=== PATIENT | female | born 2000 ===

== ENCOUNTER 2019-11-21 11:00 | Outpatient (CLI) | payer OTHER ==
[2019-11-21 18:12] LABS: HGB - HEMOGLOBIN 8.9 g/dL (12.0-16.0); MEAN CORPUSCULAR HEMOGLOBIN 25.2 pg (27.0-31.0); MEAN CORPUSCULAR HGB CONC 29.9 g/dL (32.0-36.0); MEAN CORPUSCULAR VOLUME 84.4 fL (81.0-99.0); MEAN PLATELET VOLUME 11.4 fL (7.9-10.8); RED BLOOD COUNT 3.53 10^6/uL (4.20-5.40); RED CELL DISTRIBUTION WIDTH 15.3 % (12.0-15.0); WHITE BLOOD COUNT 8.4 x10^3/uL (4.8-10.8)
== END 2019-11-21 23:59 | disposition home or self-care (01) ==
LOC: LAB.WCP 11:00
PROVIDERS: ATTEND Advanced Practice Midwife
DX: O99.019 Anemia complicating pregnancy, unspecified trimester (principal); Z3A.00 Weeks of gestation of pregnancy not specified; D64.9 Anemia, unspecified
CPT/HCPCS: 36415; 85027

== ENCOUNTER 2019-12-05 07:00 | Outpatient (CLI) | payer OTHER ==
[2019-12-05 21:40] LABS: TRICHOMONAS VAGINALIS DNA NEGATIVE (NEGATIVE)
== END 2019-12-05 23:59 | disposition home or self-care (01) ==
LOC: LAB.R 07:00
PROVIDERS: ATTEND Advanced Practice Midwife
DX: Z34.00 Encounter for supervision of normal first pregnancy, unspecified trimester (principal); Z36.85 Encounter for antenatal screening for Streptococcus B
CPT/HCPCS: 87491; 87591; 87661; 87797

== ENCOUNTER 2019-12-06 09:38 | Outpatient (CLI) | payer OTHER ==
[2019-12-06] MEDS ORDERED: ONDANSETRON 4 MG/2 ML VIAL IVP PRN (09:55)
[2019-12-06 10:03] VITALS: BP 109/54
[2019-12-06] MEDS ORDERED: IRON DEXTRAN 1,000 MG in SODIUM CHLORIDE 0.9% 250 ML IV ONE (10:30)
--- NOTE | 2019-12-18 17:51 | PROVIDER PROGRESS NOTE ---
- HPI Chief Complaint: Other (Outpatient Infusion Therapy- Iron) Current : Vital Signs Temperature 36.9 C 12/06/19 09:58 Heart Rate 82 12/06/19 09:58 Respiratory Rate 16 12/06/19 09:58 Blood Pressure 109/54 L 12/06/19 09:58 Temperature 36.9 C 12/06/19 09:58 Heart Rate 82 12/06/19 09:58 Respiratory Rate 16 12/06/19 09:58 Blood Pressure 109/54 L 12/06/19 09:58 O2 Saturation - Procedures OB Procedure Performed: Other (Iron Infusion) - Plan Plan: Outpatient Iron Infusion 19yo at 36.3wks gestation by 9.4wk US, presents today for outpatient Iron infusion for Anemia As evidenced by H/H on 11/21/2019 29.8%/8.9g/dL Impression: Patient tolerated infusion well Final Diagnosis: Stable Will follow up per protocol with visits
== END 2019-12-06 11:50 | disposition home or self-care (01) ==
LOC: WFO 09:38 → FBP 09:46 → WFO 11:50
PROVIDERS: ATTEND Obstetrics & Gynecology
DX: O99.013 Anemia complicating pregnancy, third trimester (principal); Z3A.36 36 weeks gestation of pregnancy
CPT/HCPCS: 96374; 96375; J1750; 96367

== ENCOUNTER 2020-01-07 06:08 | Inpatient (IN) | payer OTHER ==
[2020-01-07] MEDS ORDERED: miSOPROStoL 200 MCG TABLET PR PRN (07:33)
[2020-01-07] MEDS ORDERED: LIDOCAINE-MPF 1% 30 ML VIAL ID PRN ×2 (07:33)
[2020-01-07] MEDS ORDERED: fentaNYL 100 MCG/2 ML VIAL IVP PRN (07:33)
[2020-01-07] MEDS ORDERED: SODIUM CHLORIDE FLUSH 0.9% 10 ML SYRINGE IVP PRN (07:33)
[2020-01-07] MEDS ORDERED: ONDANSETRON ODT 4 MG TABLET TL PRN (07:33)
[2020-01-07] MEDS ORDERED: OXYTOCIN 10 UNIT/ML VIAL IM PRN (07:33)
[2020-01-07] MEDS ORDERED: ONDANSETRON 4 MG/2 ML VIAL IVP PRN (07:33)
[2020-01-07] MEDS ORDERED: METHYLERGONOVINE 0.2 MG/ML VIAL IM PRN ×2 (07:33)
[2020-01-07] MEDS ORDERED: miSOPROStoL 200 MCG TABLET BC PRN (07:33)
[2020-01-07] MEDS ORDERED: CARBOPROST TROMETHAMINE 250 MCG/ML AMP IM PRN ×2 (07:33)
[2020-01-07] MEDS ORDERED: TERBUTALINE 1 MG/ML VIAL SUBQ PRN (07:33)
[2020-01-07] MEDS ORDERED: MINERAL OIL LIGHT 10 ML MC ONE (07:33)
[2020-01-07] MEDS ORDERED: miSOPROStoL 200 MCG TABLET PR ONE (07:33)
[2020-01-07] MEDS ORDERED: TRANEXAMIC ACID 1,000 MG in SODIUM CHLORIDE 0.9% 100ML 100 ML IV PRN ×4 (07:33)
[2020-01-07] MEDS ORDERED: OXYTOCIN/SODIUM CHLORIDE 500 ML IV PRN ×2 (07:33)
[2020-01-07] MEDS: miSOPROStoL 100 MCG TABLET BC SCH ×2 (08:04→11:55)
[2020-01-07 08:11] LABS: BASOPHILS % (AUTO) 0.2 %; EOSINOPHILS # (AUTO) 0.1 10^3/uL (0.0-0.7); EOSINOPHILS % (AUTO) 0.8 %; HGB - HEMOGLOBIN 11.8 g/dL (12.0-16.0); LYMPHOCYTES # (AUTO) 0.9 10^3/uL (1.5-3.5); LYMPHOCYTES % (AUTO) 13.8 %; MEAN CORPUSCULAR HEMOGLOBIN 27.9 pg (27.0-31.0); MEAN CORPUSCULAR HGB CONC 31.9 g/dL (32.0-36.0); MEAN CORPUSCULAR VOLUME 87.5 fL (81.0-99.0); MEAN PLATELET VOLUME 11.5 fL (7.9-10.8); MONOCYTES # (AUTO) 0.5 10^3/uL (0.0-1.0); MONOCYTES % (AUTO) 8.3 %; NEUTROPHILS # (AUTO) 4.9 10^3/uL (1.5-6.6); NEUTROPHILS % (AUTO) 76.3 %; PLT - PLATELET COUNT 152 10^3/uL (130-450); RED BLOOD COUNT 4.23 10^6/uL (4.20-5.40); WHITE BLOOD COUNT 6.4 x10^3/uL (4.8-10.8)
--- NOTE | 2020-01-07 08:42 | HISTORY & PHYSICAL EXAMINATION ---
Admit History - Visit Reason Visit Reason: Other (Pre induction cervical ripening for 41.0wk post dates gestation) - : 1 Parity: 0 Premature: 0 Ectopic: 0 : 0 Care: positive: [facility] Risk/History: positive: None Complications This : positive: None Smoking Status: Never smoker - Mother's Labs Mother's Blood Type: positive: O Mother's RH: positive: Positive GBS: positive: Group B Strep Positive Rubella Status: positive: Immune - Other Maternal History Other Maternal History: 19yo at 41.0wks gestation who presents for pre-induction cervical ripening for post dates Reports movement Denies Ctx/VB/LOF Care- with [facility] to 34.2 weeks then transferred to [facility] complications * GBS Positive IPAP indicated, no allergies * Anemia Iron infusion completed * Genetic Screening Positive Per [facility]: Elevated DST on quad (1 in 110) but normal Level II u/s with MFM. Pt declined NIPT. FAS wnl Dating Criteria * Initial U/S: 06/05/19 9.4wks c/w LMP for BAY of 12/31/2019 OB Hx * G1: current Medications * PNV * Iron 325mg daily * TUMS Allergies * NKA Medical History * Non contributory Surgical History * None Family History * Non contributory Social History * Non contributory Labs -O pos/Rubella immune -Gentic testing: Serum /2: Down Syndrome POSITIVE *Per [facility] paperwork "Elevated DSR on quad (1 in 110) but normal level II u/s with MFM. Pt declined NIPT. -FAS: 08/14/19 WNL 47% efw. posterior placenta. 3VC. JOVANNI wnl. -Glucola: 85 -28wk H/H 10.2/30.9 plt 216- anemia. CBC ordered 11/20 -CBC at 34.2wks (at transfer) 29.8/8.9. Fe infusion received 12/06/2019 -GBS - Positive IPAP -GC/CT - negative -HSV: denies self and partner Immunizations * TDAP 10/02/2019 SVE 2/70/-2/mid/soft Assessment * 19yo at 41.0wks gestation presents for cervical ripening and induction of labor * Augustine 7 -cervix unfavorable- ripening indicated Plan * Admit to OBS(until active labor, SROM, AROM, epidural, or pitocin) * Misoprostol 50mcg BC Q4h per protocol * Monitoring- Continuous * Comfort measures available- whirlpool tub, fentanyl, epidural * Diet/Activity- per pt preference * Anticipate Meds/Allgy - Allergies Allergies/Adverse Reactions: Allergies Allergy/AdvReac Type Severity Reaction Status Date / Time No Known Drug Allergies Allergy Verified 12/06/19 10:05 Review of Systems - Constitutional Constitutional: denies: Fatigue, Fever, Chills - Eyes Eyes: denies: Pain, Irritation, Vision loss - Ears, Nose & Throat Ears, Nose & Throat: denies: Hearing loss, Vertigo, Nasal pain, Nasal congestion, Postnasal drainage, Sore throat - Cardiovascular Cariovascular: denies: Irregular heart rate, Palpitations, Chest pain, Syncope - Respiratory Respiratory: denies: Cough, Wheezing - Gastrointestinal Gastrointestinal: denies: Abdominal pain, Constipation, Diarrhea, Nausea, Bile emesis - Genitourinary Genitourinary: denies: Frequency, Urgency, Hematuria - Integumentary Integumentary: denies: Rash, Pruritis, Lesions - Neurological Neurological: denies: General weakness, Focal weakness, Headache, Dizziness - Psychiatric Psychiatric: denies: Depression, Anxiety, Suicidal - All Other Systems All Other Systems: denies: Reviewed and negative Physical - Abdominal Exam Vital Signs: Temp Pulse Resp BP Pulse Ox 36.8 C 89 18 106/66 01/07/20 07:07 01/07/20 06:30 01/07/20 06:30 01/07/20 06:30 Contraction Frequency (min/apart): intermittent Contraction Intensity: positive: Mild Uterine Resting Tone: positive: Soft - Monitoring Heart Rate Baseline: 130 Strip Review: positive: Category I - Presentation Presentation: positive: Vertex (by BSUS) - Vaginal Exam Membranes: positive: Membranes intact Dilation (in cm): 2 Effacement (%): 70 Station: positive: -2 Cervical Position: positive: Midposition - Speculum Exam Speculum Exam Performed: positive: No Plan for Labor - Plan For Labor I expect patient to be DC'd or transferred within 96 hours.: Yes
[2020-01-07 08:43] LABS: PLATELET ESTIMATE, MANUAL NORMAL (130-450,000) (NORMAL); PLATELET MORPHOLOGY NORMAL APPEARANCE (NORMAL)
[2020-01-07] MEDS ORDERED: SODIUM CHLORIDE FLUSH 0.9% 10 ML SYRINGE IVP SCH (09:00)
[2020-01-07] MEDS: LACTATED RINGERS 1,000 ML IV SCH ×2 (14:45→16:08)
[2020-01-07] MEDS ORDERED: AMPICILLIN 2 GM in SODIUM CHLORIDE 0.9% MINIBAG 100 ML IV ONE (16:00)
[2020-01-07] MEDS ORDERED: HYDROCORTISONE 1% CREAM 28 GM TUBE PR PRN (18:52)
[2020-01-07] MEDS ORDERED: WITCH HAZEL/GLYCERIN 1 PAD TOP PRN (18:52)
--- NOTE | 2020-01-07 18:59 | DELIVERY NOTE ---
Delivery Note - Labor Labor: positive: Other (Induction of labor at 41.0wks with misoprostol) - Infant Delivery Method Delivery Method: positive: Spontaneous vaginal delivery - Cervical Ripening Method Cervical Ripening Method: positive: Misoprostil - Presentation Presentation: positive: Compound, NIDIA - right occiput anterior - Nuchal Cord Nuchal Cord: positive: Present (tight x1; sommersaulted) - Anesthetic Anesthetic: positive: Lidocaine - 1% plain - Amniotic Fluid Description Amniotic Fluid Description: positive: Clear - Laceration Laceration: positive: 1st degree, Labial (right) - Suture Suture Type: positive: Vicryl Suture Size: positive: 3-0 - Delivery Outcome Delivery Outcome: positive: Livebirth - Banquete : positive: Placed in direct skin contact with mother, Bulb syringe, Stimulated, Warmed, [place] used sex: positive: Male : 7 : 8 - Cord Cord: positive: 3 vessels - Placenta Placenta: positive: Intact, Spontaneous - Estimated Blood Loss Estimated Blood Loss (in cc): 300 - Post Delivery Events Post Delivery Events: positive: No post delivery events - Delivery Comments (Free Text/Narrative) Delivery Comments (Free Text/Narrative): Note: Labor: This 19 year old, , @41.0wks gestation by 9.4 week Ultrasound, confirmed by LMP, presented @ 0600 for pre-induction cervical ripening to induce labor for post dates gestation. Cervix was 2/70/-2 and vertex confirmed by BSUS. FHR pattern demonstrated 130 baseline in a Category I pattern. Misoprostol was administered x2 doses. Normal labor course. SROM occurred @ 1721 fluid was noted to be small in volume and clear. She progressed to c/c/+2 at 1729 with spontaneous pushing efforts. Baby began showing Cat II FHT, so position changes were used along with coached pushing efforts. : Normal of a male infant on 01/07/2020 @ 1754. Nuchal cord x1, tight, sommersaulted through. Compound presentation with right hand. The was placed on maternal abdomen, stimulated, dried and placed skin to skin. Apgars 7 at one minute and 8 at five minutes. The umbilical cord was allowed to stop pulsating at which time it was doubly clamped by CNM and cut by FOB. Pitocin administered via IV for hemostasis. Fundal massage and gentle cord traction applied for active third stage management. Cord blood was obtained. Placenta delivered spontaneously and intact at 1803. Three vessel cord. EBL 300mL. Fourth Stage: Uterine fundus firm and without excessive bleeding. The perineum, vagina, and cervix were inspected and found to be intact. First degree right labial tear was repaired in standard fashion under sterile conditions with lidocaine and a 3-0 vicryl.Vaginal examination following repair was done. Tissues well approximated. encouraged. Family bonding well. Both mother and baby are in stable condition.
[2020-01-07] MEDS ORDERED: AMPICILLIN 1 GM in SODIUM CHLORIDE 0.9% MINIBAG 100 ML IV SCH (20:00)
[2020-01-07] MEDS: IBUPROFEN 600 MG TABLET PO SCH (21:38)
[2020-01-07] MEDS: ACETAMINOPHEN 325 MG TABLET PO PRN (21:38)
[2020-01-08] MEDS: ACETAMINOPHEN 325 MG TABLET PO PRN ×4 (03:54→22:12)
[2020-01-08] MEDS: IBUPROFEN 600 MG TABLET PO SCH ×4 (03:54→22:11)
--- NOTE | 2020-01-08 12:44 | PROVIDER PROGRESS NOTE ---
Subjective - Prog Note Date Prog Note Date: 01/08/20 Prog Note Time: 12:41 - Subjective Pt reports feeling: Improved Subjective: S: Cristin is sitting at bedside holding baby and attempting to breastfeed. She reports he ate three hours ago and is very sleepy. She says otherwise is going well, her pain is under control, and her bleeding is minimal. She denies further concerns. O: VSS, Fundus firm Lochia- light Excellent attachment behaviors noted A: 19yo who delivered by yesterday and is now day 1 Normal course Pain well controlled with PO meds P: Continue with routine care Anticipate discharge home tomorrow, per peds Periods of abnormal pulse reported by director of staff development. Encouraged them to notify provider and will order an EKG when happening. Pt is otherwise asymptomatic. Objective - Vital Signs/Intake & Output Vital Signs: Vital Signs x48h Temp Pulse Resp BP Pulse Ox 01/08/20 11:30 37.4 C 94 16 112/61 97 01/08/20 07:48 37.0 C 69 16 83/49 L 98 01/08/20 05:32 37.0 C Intake & Output: Intake & Output 01/05/20 01/06/20 01/07/20 01/08/20 23:59 23:59 23:59 23:59 Intake Total 3065 2786.667 Output Total 801 Balance 2264 2786.667 - Lab Results Fish Bones: 01/07/20 07:15
[2020-01-09] MEDS: IBUPROFEN 600 MG TABLET PO SCH ×3 (04:49→17:46)
--- NOTE | 2020-01-09 15:34 | Discharge Plan ---
Discharge Plan Problem Reviewed?: Yes Disposition: Home, Self Care Condition: Good Diet: Regular Activity Restrictions: No Restrictions Shower Restrictions: No Driving Restrictions: No Weight Bearing: Full Weight Plan of Treatment: Follow up with JUJU Araya at 1, 3, and 6 weeks Additional Instructions or Follow Up instructions: Nothing in the vagina for 6 weeks: No intercourse, tampons, douching Call for: -Fever greater than 100.5 -Pain that does not improve with pain medication -Heavy bleeding in which you are soaking a pad an hour for 2 hours in a row Ibuprofen 600 mg by mouth every 6 hours as needed for pain Acetaminophen 500- 1000 mg by mouth every 8 hours as needed for pain No Smoking: If you smoke, Please STOP! Call for help. Follow-up with: Elvia Araya ARNP [Provider Admit Priv/Credential] -
--- NOTE | 2020-01-09 15:38 | DISCHARGE SUMMARY ---
Discharge Summary Discharge Date: 01/09/20 Code Status: Attempt Resuscitation Condition at Discharge: Good Discharge Disposition: 01 Home, Self Care - HPI History of Present Illness: Admit Date 01/07/2020 Discharge Date 01/09/2020 Diagnosis on Admission: 1. A 19yo at 41.0 week intrauterine 2. GBS Positive 3. Anemia of 4. Genetic Screening positive Diagnosis on Discharge 1. A 19yo s/p spontaneous vaginal delivery on 01/07/2020 2. Normal recovery 3. Anemia of - resolved. CBC on admit 4. Genetic Screening positive- no concerns per Peds 5. Asymptomatic transient bradycardia Brief History: She is a patient at [facility] who presented on 01/07/2020 for induction of labor for post dates . Her cervix was 2cm dilated, 70%effaced, and -2 station. Her cervix was ripened with misoprostol, labor then started spontaneously, and she delivered a viable male infant named Jean. Apgars were 7 and 8- and 1 and 5 minutes respectively. EBL 300mL. The patient has a 1st degree labial laceration that was repaired with 3-0 vicryl in usual fashion under sterile conditions. She has been doing well in her course. She is ambulating and tolerat ing a regular diet. She has had some irregular heart rates, with transient bradycardia noted. She desires a cardiology consult. She is urinating without difficulty and her lochia is normal. Her pain is well controlled with oral medications. She will be discharged home today on day #2 with recommendations for ibuprofen and colace. She intends to follow up with myself at [facility] in 1, 3, and 6 weeks for routine visit. She has been given precautions to call if she has any worsening fevers, chills, abdominal pain, increased bleeding or foul smelling vaginal lochia. - ALLERGIES Allergies/Adverse Reactions: Allergies Allergy/AdvReac Type Severity Reaction Status Date / Time No Known Drug Allergies Allergy Verified 12/06/19 10:05 - MEDICATIONS Home Medications: Ambulatory Orders Medication Instructions Recorded Confirmed Acetaminophen [Tylenol] 650 mg PO Q6H PRN tablet 01/09/20 Ibuprofen [Motrin] 600 mg PO Q6H tablet 01/09/20 Witch Adelina/Glycerin [Tucks] 1 pad TOP QID PRN pkg 01/09/20 - LABS Result Diagrams: 01/07/20 07:15
[2020-01-09 16:04] VITALS: BP 106/52
--- NOTE | 2020-01-09 18:53 | Labor Flowsheet ---
Labor Flowsheet Datetime Report Generated by CPN: 01/09/2020 18:53 Datetime: 01/09/2020 15:50 VITAL SIGNS NBP Sys/Rosangela/Mean (mmHg): 106 : 52 : 65 Pulse: 61 SpO2 (%): 98 Datetime: 01/07/2020 19:00 Stage of : Datetime: 01/07/2020 17:54 Stage 2 Comments: male NIDIA with a compound right hand. Delivered through a tight nuchal . Datetime: 01/07/2020 17:50 UTERINE ACTIVITY Monitor Mode: External Frequency (min): 1-2 Resting Tone (Palpate): Relaxed Comments: Prolong decel/bradycardia STAGE 2 Pushing: Involuntary Pushing Pushing Position: Pushing with Contractions Pushing Progress: with Pushing LaborFlag: Labor Datetime: 01/07/2020 17:43 Quality: Strong Datetime: 01/07/2020 17:40 ASSESSMENT A Monitor Mode: External US Monitor Interventions for FHR: Ultrasound Adjusted Variability: Minimal - Undetectable to <=5 bpm Accelerations: None Decelerations: Prolonged Category: Category II Oxygen Amount (LPM): 10 Oxygen Method: Non-Rebreather Datetime: 01/07/2020 17:38 Patient Position/Activity: Hands-Knees Datetime: 01/07/2020 17:35 Duration (sec): 60-90 COMMUNICATION Communication: RN at Bedside; Provider at Bedside Datetime: 01/07/2020 17:30 FHR Baseline Rate : 120 Communication Comments: Provider enroute Datetime: 01/07/2020 17:29 VAGINAL EXAM Dilatation (cm): 10.0 Effacement (%): 100 Station: 2 Exam by: T Ion RNC Datetime: 01/07/2020 17:21 Membrane Status: Ruptured Membranes Rupture Method: Spontaneous Amniotic Fluid Color: Clear Amniotic Fluid Amount: Small Amniotic Fluid Odor: Normal Membrane Comments: 1721 Datetime: 01/07/2020 17:15 Vaginal Exam Comments: rectal pressure Datetime: 01/07/2020 17:11 I/O Interventions: Up to BR Datetime: 01/07/2020 17:08 Vaginal Bleeding: Normal Show Cervix, Consistency: Soft Cervix, Position: Anterior Provider Notified (Name): Elvia Araya [facility] Notification Reason: Labor Status; Membrane Status Datetime: 01/07/2020 17:00 Contraction Comments: Urge to pee with every contraction. Having a hard time not being up and movi ng. Datetime: 01/07/2020 16:51 Patient Care Comments: Feels like she constantly needs to void Datetime: 01/07/2020 16:18 Membranes Ruptured Date/Time: 01/07/2020 17:21 Datetime: 01/07/2020 16:09 MEDICATIONS Antibiotics: Ampicillin IV 2 Gm PATIENT CARE IV/Blood Work: IV Infusing per Order; New IV Bag Hung; IV Bag Number @ 2 Datetime: 01/07/2020 15:53 Respirations: 20 Temperature (C): 36.8 Temperature Route: Oral Datetime: 01/07/2020 15:39 PAIN Pain Scale: 5 Pain Presence: Intermittent Pain Type: Cramping Pain Location: Abdomen; Back Pain Goal: 9 Pain Relief Measures: Comfort Measures Pain Coping: Talking Through Contractions Pain Assessment Comments: Contractions are getting stronger Comfort Measures: Breathing/Relaxation Datetime: 01/07/2020 14:00 Pattern: Normal: <= 5 Contractions in 10 Minutes FHR Baseline Changes: No Baseline Change Datetime: 01/07/2020 11:55 Cervical Ripening Agents: Cytotec @ Medication Comments: buccal Datetime: 01/07/2020 10:15 Monitor Interventions for UA: Brock Adjusted Pitocin Checklist: At Least 1 Acceleration of 15 bpm x 15 Seconds in 30 Minutes or Adequate Variabi lity Datetime: 01/07/2020 08:02 TEACHING Instructional Method: Demo; Verbal; Patient Instructed; Family/Support Person Instructed Plan of Care: Plan of Care Discussed; Induction Unit Routine: [place] to Room; Call Multani; Bed; Monitoring Labor/Induction: Cervical Ripening Pain Management: Pain Scale/Goals Medications: Cervical Ripening Related: Activity and Rest Teaching Comments: Reviewed Misoprostol, birthing balls, peanut balls, positioning, jacuuzi tub.
== END 2020-01-09 18:45 | disposition home or self-care (01) | DRG 806 ==
LOC: WFO 06:08 → FBP 06:11 → WFO 07:32 → UNDOADMOB 07:33 → FBP 07:33 → OBSVTOIN 16:14
PROVIDERS: ADMIT Advanced Practice Midwife; ATTEND Advanced Practice Midwife
PROC: 10E0XZZ Delivery of Products of Conception, External Approach (ICD-10-PCS; principal; 2020-01-07)
PROC: 0HQ9XZZ Repair Perineum Skin, External Approach (ICD-10-PCS; 2020-01-07)
DX: O48.0 Post-term pregnancy (principal); O99.43 Diseases of the circulatory system complicating the puerperium; Z37.0 Single live birth; I49.8 Other specified cardiac arrhythmias; O99.824 Streptococcus B carrier state complicating childbirth; O32.6XX0 Maternal care for compound presentation, not applicable or unspecified; O69.1XX0 Labor and delivery complicated by cord around neck, with compression, not applicable or unspecified; O70.0 First degree perineal laceration during delivery; Z3A.41 41 weeks gestation of pregnancy
CPT/HCPCS: 85025; A9270; J7120